=== PATIENT | male | born 1970 | race Caucasian/White ===

== ENCOUNTER 2017-12-30 17:52 | Emergency (ER) | payer MEDICAID ==
[~2017-12-30] VITALS: Ht 175.3 cm; Wt 81.6 kg
[2017-12-30 18:02] VITALS: BP_SYST 132
[2017-12-30 18:23] VITALS: BP_SYST 132
== END 2017-12-30 18:23 ==
LOC: SED 17:52
DX: L03.113 Cellulitis of right upper limb (principal); L03.116 Cellulitis of left lower limb; F17.200 Nicotine dependence, unspecified, uncomplicated; F15.10 Other stimulant abuse, uncomplicated; R03.0 Elevated blood-pressure reading, without diagnosis of hypertension
CPT/HCPCS: 99283